=== PATIENT | female | born 1965 | race Caucasian/White ===

== ENCOUNTER 2024-10-25 13:08 | Outpatient (CLI) | payer OTHER ==
[2024-10-25 14:55] LABS: #Basophils 0.03 10x3/uL (0.0-0.2); #Eosinophils 0.21 10x3/uL (0.0-0.5); #Monocytes 0.39 10x3/uL (0.0-1.1); #Neutrophils 3.16 10x3/uL (1.5-8.4); %Basophils 0.6 % (0.0-2.0); %Lymphocytes 28.2 % (18.0-47.0); %Monocytes 7.4 % (0.0-10.0); %Neutrophils 59.6 % (40.0-75.0); Hematocrit 39.3 % (34.9-44.5); Hemoglobin 12.5 g/dL (12.0-15.5); Mean Corpuscular HGB CONC 31.8 g/dL (32.0-36.0); Mean Corpuscular Hemoglobin 28.7 pg (27.0-33.0); Mean Corpuscular Volume 90.3 fL (81.6-98.3); Mean Platelet Volume 10.8 fL (7.4-10.4); Platelet Count 201 10x3/uL (150-450); RBC Distribution Width 12.4 % (11.5-14.5); Red Blood Cell (RBC) Count 4.35 10x6/uL (3.90-5.03); White Blood Cell (WBC) Count 5.3 10x3/uL (3.5-10.5)
[2024-10-25 15:24] LABS: ALT (SGPT) 18 U/L (8-55); AST (SGOT) 17 U/L (5-34); Albumin 4.1 g/dL (3.5-5.0); Alkaline Phosphatase 71 U/L (40-110); Anion Gap 11 mmol/L (10-20); BUN (Urea Nitrogen) 15 mg/dL (9.8-20.1); Bilirubin, Direct 0.1 mg/dL (0.1-0.3); Bilirubin, Total 0.3 mg/dL (0.2-1.2); Calc. Creatinine Clearance 0 mL/min (70-130); Calcium 9.4 mg/dL (7.8-10.44); Carbon Dioxide 26 mmol/L (22-29); Chloride 107 mmol/L (98-107); Estimated GFR 87; Glucose 92 mg/dL (70-105); Potassium 4.1 mmol/L (3.5-5.1); Protein, Total 6.6 g/dL (6.0-8.3); Sodium 140 mmol/L (136-145)
[2024-10-25 20:10] LABS: Hemoglobin A1c 5.6 % (4.0-6.0)
== END 2024-10-25 13:09 | disposition home or self-care (01) ==
LOC: CSHLAB 13:08
PROVIDERS: ATTEND Surgery
DX: Z01.818 Encounter for other preprocedural examination (principal); K63.89 Other specified diseases of intestine; R94.31 Abnormal electrocardiogram [ECG] [EKG]
CPT/HCPCS: 80048; 80076; 83036; 85025; 93005; 93010

== ENCOUNTER 2024-10-25 13:30 | Inpatient (IN) | payer OTHER ==
[2024-11-01] MEDS ORDERED: Lidocaine 1% PF 5 ML VIAL ONE (07:57)
[2024-11-01] MEDS ORDERED: Rocuronium Bromide 10 MG/ML (10ML VIAL) ONE (07:57)
[2024-11-01] MEDS ORDERED: PROPOFOL 20 ML ONE (07:57)
[2024-11-01] MEDS ORDERED: fentaNYL 50 mcg/mL 1 mL Vial ONE ×6 (07:57→14:45)
[2024-11-01] MEDS ORDERED: Bupivacaine/Epinephrine 0.25% 30 ML VIAL ONE (08:12)
[2024-11-01] MEDS ORDERED: CEFAZOLIN 2 GM VIAL ONE (08:12)
[2024-11-01] MEDS ORDERED: Ketorolac Tromethamine 30 MG (1 mL) VIAL ONE ×2 (08:57→11:27)
[2024-11-01] MEDS ORDERED: ceFOXitin 1 GM VIAL ONE ×2 (09:39→09:40)
[2024-11-01] MEDS ORDERED: SUGAMMADEX SODIUM 200 MG/2 ML VIAL ONE (11:26)
[2024-11-01] MEDS ORDERED: Naloxone HCl 0.4 mg/ml Vial IVP PRN (12:01)
[2024-11-01] MEDS ORDERED: hydrALAZINE 20 MG/ML VIAL SLOW IVP PRN (12:01)
[2024-11-01] MEDS ORDERED: Ipratropium/Albuterol 3 ML NEB NEB PRN (12:01)
[2024-11-01] MEDS ORDERED: HYDROmorphone 0.5 MG/0.5 ML SYRINGE ONE (12:16)
[2024-11-01 16:25] VITALS: BMI 27.9
[2024-11-01] MEDS: Acetaminophen 500 MG TAB PO SCH (16:30)
[2024-11-01] MEDS: D5 1/2 NS w/20 mEq KCL 1,000 ML IV SCH (16:58)
[2024-11-01] MEDS: cefOXitin Sodium 1 GM in Sodium Chloride 0.9% 100 ML IVPB SCH (17:00)
[2024-11-01] MEDS: fentaNYL 50 mcg/mL 1 mL Vial SLOW IVP PRN (17:10)
[2024-11-01] MEDS: Famotidine 20 MG TAB PO SCH (21:15)
[2024-11-01] MEDS: oxyCODONE 5 MG TAB PO PRN (21:26)
[2024-11-01] MEDS: Ondansetron PF 4 MG/2 ML Vial IVP PRN (21:27)
[2024-11-01] MEDS: Famotidine/PF 20 mg/2ml Vial SLOW IVP SCH (22:19)
[2024-11-01] MEDS: Promethazine HCl 25 MG/ML VIAL IM PRN (22:55)
[2024-11-02] MEDS: traMADol HCl 50 MG TAB PO PRN (01:17)
[2024-11-02] MEDS: Icosapent Ethyl 1 GM CAPSULE PO SCH (01:25)
[2024-11-02] MEDS: cefOXitin Sodium 1 GM in Sodium Chloride 0.9% 100 ML IVPB SCH (01:28)
[2024-11-02 04:38] LABS: #Basophils Less than 0.03 10x3/uL (0.0-0.2); #Eosinophils Less than 0.03 10x3/uL (0.0-0.5); #Neutrophils 5.46 10x3/uL (1.5-8.4); %Basophils 0.1 % (0.0-2.0); %Lymphocytes 10.9 % (18.0-47.0); %Monocytes 8.8 % (0.0-10.0); %Neutrophils 80.1 % (40.0-75.0); Hematocrit 33.4 % (34.9-44.5); Hemoglobin 11.3 g/dL (12.0-15.5); Mean Corpuscular HGB CONC 33.8 g/dL (32.0-36.0); Mean Corpuscular Hemoglobin 29.8 pg (27.0-33.0); Mean Corpuscular Volume 88.1 fL (81.6-98.3); Mean Platelet Volume 10.6 fL (7.4-10.4); Platelet Count 186 10x3/uL (150-450); RBC Distribution Width 12.7 % (11.5-14.5); Red Blood Cell (RBC) Count 3.79 10x6/uL (3.90-5.03); White Blood Cell (WBC) Count 6.82 10x3/uL (3.5-10.5)
[2024-11-02 05:03] LABS: Anion Gap 10 mmol/L (10-20); BUN (Urea Nitrogen) 9 mg/dL (9.8-20.1); Calc. Creatinine Clearance 94 mL/min (70-130); Calcium 9.5 mg/dL (7.8-10.44); Carbon Dioxide 22 mmol/L (22-29); Chloride 111 mmol/L (98-107); Estimated GFR 91; Glucose 172 mg/dL (70-105); Potassium 4.2 mmol/L (3.5-5.1); Sodium 139 mmol/L (136-145)
[2024-11-02] MEDS: Aspirin Chewable 81 MG TAB PO SCH (08:33)
[2024-11-02] MEDS: Metoprolol Succinate XL 50 MG ER.TAB PO SCH (08:33)
[2024-11-02] MEDS: Amlodipine 5 MG TAB PO SCH (08:34)
[2024-11-02] MEDS ORDERED: Enoxaparin 40 MG (0.4 mL) SYRINGE SC SCH (09:00)
[2024-11-03 08:49] VITALS: BP 122/71; TEMP 98.2
== END 2024-11-03 12:49 | disposition home or self-care (01) | DRG 331 ==
LOC: CSHTELE 11-01 07:02
PROVIDERS: ADMIT Surgery; ATTEND Surgery
PROC: 0DTF4ZZ Resection of Right Large Intestine, Percutaneous Endoscopic Approach (ICD-10-PCS; principal; 2024-11-01)
PROC: 8E0W4CZ Robotic Assisted Procedure of Trunk Region, Percutaneous Endoscopic Approach (ICD-10-PCS; 2024-11-01)
DX: K63.89 Other specified diseases of intestine (principal); K63.5 Polyp of colon
CPT/HCPCS: 36415; 36416; 80048; 85025; 88307; 88309; J0694; J1171; J1885; J2405; J2550; J2704; J3010; J3480; S2900